=== PATIENT | male | born 1945 | race Caucasian/White ===

== ENCOUNTER 2022-01-29 18:59 | Emergency (ER) | payer OTHER ==
--- OUTSIDE RECORDS SUMMARY | 2022-01-29 19:01 | XMS REPORT | Continuity of Care Document ---
:1945 Author Organization [facility] t Address [address] [place] [address] Care Team Providers Name Role Phone Samy FARLEY Primary Care Physician Unavailable ABE Attending Clinician Unavailable Abe TOVAR Attending Clinician Payers Payer Name Policy Type Policy Number Effective Date Expiration Date S mans[place] [employer] MANAGED [id number] 2020 MEDICARE PPO-CRISTELA 00:00:00 Problems Condition Condition Condition Status Onset Resolution Last Treating Co mments Source Name Details Category Date Date Treatment Clinician Date Diabetes Diabetes Disease Active Unive rs mellitus mellitus 2-18 ity of type 2, type 2, 00:00: [place] diet-contr diet-contr 00 Me dical olled olled Branch REECE REECE Disease Active Univers (obstructi (obstructi 2-08 it y of ve sleep ve sleep 00:00: [place] apnea) apnea) 00 Medical Branch H/O H/O Disease Active Univers valvular valvular 1-24 ity of heart heart 00:00: [place] disease disease 00 Medical Branch Cataracts, Cataracts, Disease Active U nivers bilateral bilateral 1-24 ity of 00:00: [place] 00 Medical Branch Hyperlipid Hyperlipid Disease Active U nivers emia emia 1-19 ity of 00:00: [place] 00 Medical Branch Hypothyroi Hypothyroi Disease Active U nivers dism dism ity of [facility] GERD GERD Disease Active Univers (gastroeso (gastroeso it y of phageal phageal [place] reflux reflux Medical disease) disease) Branch Arthritis Arthritis Disease Active Uni vers ity of [facility] Neuropathi Neuropathi Disease Active U nivers c pain c pain ity of [facility] Allergies, Adverse Reactions, Alerts Allergy Allergy Status Severity Reaction(s) Onset Inactive Treating Comm ents Source Name Type Date Date Clinician CODEINE DRUG Active Anxiety Univers INGREDI 10-31 ity of 00:00: [place] 00 Medical Branch Codeine Propensi Active Anxiety Hyper Univer s ty to 10-31 ity of adverse 00:00: [place] reaction 00 Medical s Branch Social History Social Habit Start Date Stop Date Quantity Comments Source Exposure to Not sure [place] of SARS-CoV-2 [facility] (event) Branch Alcohol intake 2021-08-30 2021-08-30 Current University of 00:00:00 00:00:00 non-drinker of [facility] alcohol [place] (finding) Tobacco use and 2017-10-31 2017-10-31 Never used Universit y of exposure 00:00:00 00:00:00 [facility] Sex [birth year] Universit y of 00:00:00 00:00:00 [facility] Smoking Status Start Date Stop Date Source Current every day smoker 2017-10-31 00:00:00 Uni versity of [facility] Medications Ordered Filled Start Stop Current Ordering Indication Dosage Frequency Signature Comments Components Source Medication Medication Date Date Medication? Clinician (SIG) Name Name clindamycin 2020-10 Yes [id number] 150mg Take 1 Univers 150 mg 0-01 capsule by ity of capsule 00:00: mouth 4 [place] 00 ([facility]) Medical times [place] daily. clindamycin 2020-10 Yes [id number] 150mg Take 1 Univers 150 mg 0-01 capsule by ity of capsule 00:00: mouth 4 [place] ([facility]) Medical times [place] daily. Immunizations Ordered Filled Immunization Date Status Comments Sourc e Immunization Name Name SARS-COV-2 COVID-19 2020-12-09 Completed Unive rsity of MODERNA VACCINE 00:00:00 [facility] SARS-COV-2 COVID-19 2020-12-09 Completed Unive rsity of MODERNA VACCINE 00:00:00 [facility] SARS-COV-2 COVID-19 2020-11-13 Completed Unive rsity of MODERNA VACCINE 00:00:00 [facility] SARS-COV-2 COVID-19 2020-11-13 Completed Unive rsity of MODERNA VACCINE 00:00:00 [facility] Vital Signs Vital Name Observation Time Observation Value Comments Source Systolic blood 2021-08-30 19:46:00 160 mm[Hg] Univer sity of pressure [facility] Diastolic blood 2021-08-30 19:46:00 81 mm[Hg] Unive rsity of pressure [facility] Heart rate 2021-08-30 19:46:00 78 /min Universi ty [facility] Body temperature 2021-08-30 19:46:00 36.5 [facility] Respiratory rate 2021-08-30 19:46:00 18 /min [facility] Body height 2021-08-30 19:46:00 177.8 cm [facility] Body weight 2021-08-30 19:46:00 77.293 kg [facility] BMI 2021-08-30 19:46:00 24.45 kg/m2 [facility] Oxygen saturation in 2021-08-30 19:46:00 95 /min [facility] blood by [facility] Pulse oximetry Branch Procedures This patient has no known procedures. Encounters Start End Encounter Admission Attending Care Care Encounter Source Date/Time Date/Time Type Type Clinicians Facility Department ID 2021-08-30 2021-08-30 [facility] [id number] Univers 13:45:00 14:00:[address] [facility] 2021-08-30 2021-08-30 Office [facility] [id number] Univers 13:35:57 14:00:34 Visit Adalgisa ARREOLA [id number] i [facility] [id number] Jose AMADOR [id number] [place] [address] 2021-08-16 2021-08-16 [facility] [id number] Univers 08:00:00 10:03:[address] [facility] 2019-12-10 2019-12-11 Outpatient nullFlavo MNA [id number] Memoria 20:00:00 05:59:59 r Neurology 00 l Kaci Menon Results This patient has no known results.
[2022-01-29] MEDS ORDERED: LIDOCAINE 1% W/EPI 1:100,000 MDV 20 ML VIAL ONE (21:18)
--- NOTE | 2022-01-29 21:46 | RAD REPORT ---
EXAM DESCRIPTION: CT - [id number] - 01/29/2022 9:27 pm CLINICAL HISTORY: fall, right periorbital laceration COMPARISON: <Comparisons> TECHNIQUE: Axial 5 mm thick images of the head were obtained. Axial 2 mm thick images of the cervic al spine were obtained with sagittal and coronal reconstruction images generated and reviewed. All CT scans are performed using dose optimization technique as appropriate and may include automated exposure control or mA/KV adjustment according to patient size. FINDINGS: No intracranial hemorrhage, mass, edema or acute intracranial finding. No suspicion for ac marshall infarction. No extra-axial fluid collections. Mastoid air cells and paranasal sinuses are clear. No globe or orbit abnormality seen. Right periorbital small scalp hematoma is present with underlying bone intact. No significant atrophy or chronic ischemic change. Ventricles are normal. Cervical body height and alignment are normal. C5-6 disc space narrowing is present. Bridging ossific ation spans C6-7 likely restricted movement at this level. C5-6 endplate spurring causes bony foramin al encroachment. There is bony foraminal encroachment at C3-4. Posterior decompression changes are pr esent from C3 -C6. No fracture or acute bony abnormality. Central canal detail is inherently limited . No paraspinal mass or hematoma. IMPRESSION: Negative CT head examination for acute or significant finding. Patient has a small right periorbital scalp hematoma with underlying bone intact. Degenerative and postsurgical changes are present with no acute finding seen.
--- NOTE | 2022-01-29 23:15 | ER ---
Nurse's Notes [facility] Name: Christian Torres Age: 76 yrs Sex: Male : 1945 Arrival Date: 01/29/2022 Time: 19:01 Bed 23 Private MD: Diagnosis: Laceration without foreign body of unspecified part of head;Fall on same level from slipping, tripping and stumbling without subsequent striking against object Presentation: 01/29 19:05 Chief complaint: Patient states: got out of truck, fell and hit concrete. laceration to right eyebrow area, denies LOC, not on blood thinners, has been drinking. Care prior to arrival: None. Mechanism of Injury: Fall. Trauma event details: Injury occurred in the [facility]. 19:05 Method Of Arrival: Ambulatory iw 19:05 Acuity: ANDREAS 4 iw 19:07 Coronavirus screen: At this time, the client does not indicate any symptoms associated iw with coronavirus-19. Ebola Screen: Patient negative for fever greater than or equal to 101.5 degrees Fahrenheit, and additional compatible Ebola Virus Disease symptoms Patient denies exposure to infectious person. Patient denies travel to an Ebola-affected area in the 21 days before illness onset. No symptoms or risks identified at this time. Initial Sepsis Screen: Does the patient meet any 2 criteria? No. Patient's initial sepsis screen is negative. Does the patient have a suspected source of infection? No. Patient's initial sepsis screen is negative. Risk Assessment: Do you want to hurt yourself or someone else? Patient reports no desire to harm self or others. Onset of symptoms was January 29, 2022. Historical: - Allergies: 19:07 Codeine; iw 19:07 Dilaudid; iw - PMHx: 19:07 Arthritis; GERD; Hyperlipidemia; mitral valve prolapse; iw - Immunization history:: Adult Immunizations up to date. - Social history:: Smoking status: Patient reports the use of cigarette tobacco products, smokes one pack cigarettes per day. Patient uses alcohol, on a daily basis. Screenin:15 Abuse screen: Denies threats or abuse. Denies injuries from another. Nutritional ld1 screening: On. Nutritional screening: No deficits noted. Tuberculosis screening: No symptoms or risk factors identified. Fall Risk None identified. Assessment: 21:15 General: Appears in no apparent distress. comfortable, Behavior is calm, cooperative, ld1 appropriate for age. 21:15 Pain: Denies pain. Neuro: Level of Consciousness is awake, alert, obeys commands, ld1 Oriented to person, place, time, situation. Cardiovascular: Capillary refill < 3 seconds Patient's skin is warm and dry. Respiratory: Airway is patent Respiratory effort is even, unlabored, Respiratory pattern is regular, symmetrical. GI: Abdomen is flat, non-distended. : No signs and/or symptoms were reported regarding the genitourinary system. EENT: No signs and/or symptoms were reported regarding the EENT system. Derm: No signs and/or symptoms reported regarding the dermatologic system. Musculoskeletal: No signs and/or symptoms reported regarding the musculoskeletal system. Injury Description: Laceration sustained to outer aspect of right eyebrow. 23:10 Reassessment: Patient appears in no apparent distress at this time. No changes from ld1 previously documented assessment. Patient and/or family updated on plan of care and expected duration. Pain level reassessed. Vital Signs: 19:07 BP 120 / 66; Pulse 65; Resp 16; Temp 97.5; Pulse Ox 98% on R/A; iw 21:15 BP 122 / 58; Pulse 82; Resp 18; Pulse Ox 100% on R/A; ld1 23:10 BP 133 / 61; Pulse 81; Resp 18; Pulse Ox 100% on R/A; ld1 ED Course: 19:01 Patient arrived in ED. as 19:07 Triage completed. iw 19:08 Arm band placed on. iw 20:39 Manda Reyna RN is Primary Nurse. ld1 20:39 Eduardo Hodges PA is PHCP. cp 20:39 Will Graham MD is Attending Physician. cp 21:15 Patient has correct armband on for positive identification. Placed in gown. Bed in low ld1 position. Call light in reach. Side rails up X2. health care marketing specialist on. Pulse ox on. NIBP on. Door closed. Noise minimized. Warm blanket given. 21:15 No provider procedures requiring assistance completed. Patient did not have IV access ld1 during this emergency room visit. 21:28 CT Head C Spine In Process Unspecified. EDMS Administered Medications: 21:36 Drug: Lidocaine-Epinephrine -1%: (1:100,000) 5 ml {Note: administered by abebe wagner PA.} Volume: 20 ml; Route: Infiltration; Outcome: 23:14 Discharge ordered by . cp 23:19 Discharged to home ambulatory, with family. ld1 23:19 Condition: stable 23:19 Discharge instructions given to patient, family, Instructed on discharge instructions, follow up and referral plans. Demonstrated understanding of instructions, follow-up care. 23:19 Patient left the ED. ld1 Signatures: Dispatcher [employer] Eloisa Leon Irene, RN RN iw Page, Corey, PA PA cp Dibbern, Lauren, RN RN ld1 Corrections: (The following items were deleted from the chart) 19:08 19:05 Acuity: ANDREAS 3 iw jessica
--- NOTE | 2022-01-29 23:15 | EDPHYS ---
Physician Documentation [facility] Name: Christian Torres Age: 76 yrs Sex: Male : 1945 Arrival Date: 01/29/2022 Time: 19:01 Bed 23 Private MD: ED Physician Will Graham HPI: 01/29 21:10 This 76 yrs old Male presents to ER via Ambulatory with complaints of Fall Injury, cp Laceration. 21:10 Details of fall: The patient fell from an upright position, while walking. Onset: The cp symptoms/episode began/occurred just prior to arrival. Associated injuries: The patient sustained injury to the head, laceration, of the above right eye. Patient admits to consuming alcohol this evening. No reported LOC. Historical: - Allergies: 19:07 Codeine; iw 19:07 Dilaudid; iw - PMHx: 19:07 Arthritis; GERD; Hyperlipidemia; mitral valve prolapse; iw - Immunization history:: Adult Immunizations up to date. - Social history:: Smoking status: Patient reports the use of cigarette tobacco products, smokes one pack cigarettes per day. Patient uses alcohol, on a daily basis. ROS: 21:15 Constitutional: Negative for body aches, chills, fever, poor PO intake. cp 21:15 Eyes: Negative for visual disturbance. cp 21:15 Neck: Negative for stiffness. 21:15 Cardiovascular: Negative for chest pain. 21:15 Respiratory: Negative for cough, shortness of breath, wheezing. 21:15 Abdomen/GI: Negative for abdominal pain, vomiting, diarrhea, constipation. 21:15 Skin: Positive for laceration(s), of the above left eye. 21:15 Neuro: Negative for altered mental status, loss of consciousness, syncope, weakness. 21:15 All other systems are negative. Exam: 21:20 Constitutional: The patient appears in no acute distress, alert, awake, comfortable, cp non-diaphoretic, non-toxic, well developed, well nourished. 21:20 Head/face: Noted is a laceration(s), that is deep, that is jagged, of the above right cp eye, swelling, that is mild. 21:20 Eyes: Pupils: equal, round, and reactive to light and accomodation, Extraocular movements: intact throughout, Conjunctiva: normal, no exudate, no injection, Sclera: no appreciated abnormality, Lids and lashes: appear normal, bilaterally. 21:20 ENT: External ear(s): are unremarkable, Ear canal(s): are normal, TM's: dullness, bilaterally, Nose: is normal, Mouth: Lips: moist, Oral mucosa: pink and intact, moist, Posterior pharynx: Airway: no evidence of obstruction, patent. 21:20 Neck: C-spine: vertebral tenderness, is not appreciated, crepitus, is not appreciated, cp ROM/movement: is normal, is supple, without pain, no range of motions limitations, no nuchal rigidity. 21:20 Chest/axilla: Inspection: normal, Palpation: is normal, no crepitus, no tenderness. cp 21:20 Cardiovascular: Rate: normal, Rhythm: regular. 21:20 Respiratory: the patient does not display signs of respiratory distress, Respirations: normal, no use of accessory muscles, no retractions, labored breathing, is not present, Breath sounds: are clear throughout, no decreased breath sounds, no stridor, no wheezing. 21:20 Abdomen/GI: Inspection: abdomen appears normal, Palpation: abdomen is soft and non-tender, in all quadrants. 21:20 Musculoskeletal/extremity: Exam is negative for decreased range of motion, deformity, injury. 21:20 Neuro: Orientation: to person, place \T\ time. Mentation: is normal, Motor: moves all fours, strength is normal, Sensation: no obvious gross deficits. Vital Signs: 19:07 BP 120 / 66; Pulse 65; Resp 16; Temp 97.5; Pulse Ox 98% on R/A; iw 21:15 BP 122 / 58; Pulse 82; Resp 18; Pulse Ox 100% on R/A; ld1 23:10 BP 133 / 61; Pulse 81; Resp 18; Pulse Ox 100% on R/A; ld1 Laceration: 23:00 Wound Repair of 3cm ( 1.2in ) subcutaneous laceration to above right eye. Irregularly cp shaped.. Distal neuro/vascular/tendon intact. Anesthesia: Wound infiltrated with 4 mls of 1% lidocaine w/ Epi. Wound prep: Simple cleansing by me. Skin closed with 5 6-0 Prolene using interrupted sutures and sterile technique. Dressed with Bacitracin. Patient tolerated well. MDM: 20:45 Patient medically screened. cp 22:00 Differential diagnosis: closed head injury, contusion, fracture, laceration, multiple cp trauma. 23:14 Data reviewed: vital signs, nurses notes, radiologic studies, CT scan. cp 23:14 Counseling: I had a detailed discussion with the patient and/or guardian regarding: the cp historical points, exam findings, and any diagnostic results supporting the discharge/admit diagnosis, radiology results, the need for outpatient follow up, a family practitioner, to return to the emergency department if symptoms worsen or persist or if there are any questions or concerns that arise at home. Response to treatment: the patient's symptoms have markedly improved after treatment. Special discussion: Based on the patient's history, exam and DX evaluation, there is no indication for emergent intervention or inpatient [place]. It is understood by the patient/guardian that if the SXs persist or worsen they need to return immediately for re-evaluation. 01/29 20:57 Order name: CT Head C Spine; Complete Time: 21:58 cp 01/29 20:57 Order name: Dressing - Wound; Complete Time: 21:15 cp 01/29 20:57 Order name: Gloves, Sterile; Complete Time: 21:15 cp 01/29 20:57 Order name: Setup Suture Tray; Complete Time: 21:15 cp 01/29 22:39 Order name: Wound dressing; Complete Time: 23:02 cp Administered Medications: 21:36 Drug: Lidocaine-Epinephrine -1%: (1:100,000) 5 ml {Note: administered by abebe wagner.} Volume: 20 ml; Route: Infiltration; Disposition Summary: 01/29/22 23:14 Discharge Ordered Location: Home cp Problem: new cp Symptoms: have improved cp Condition: Stable cp Diagnosis - Laceration without foreign body of unspecified part of head cp - Fall on same level from slipping, tripping and stumbling without subsequent cp striking against object Followup: cp - With: Private Physician - When: 1 week - Reason: Staple/Suture removal Discharge Instructions: - Discharge Summary Sheet cp - Head Injury, Adult cp - Facial Laceration cp Forms: - Medication Reconciliation Form cp - Thank You Letter cp - Antibiotic Education cp - Prescription Opioid Use cp Signatures: Dispatcher [employer] Joanne Lopez RN RN iw Eduardo Hodges PA PA cp Manda Reyna, RN RN ld1
[2022-01-30 05:33] VITALS: TEMP 97.5
[2022-01-30 05:34] VITALS: O2SAT 100
[2022-01-30 05:36] VITALS: BP 133/61
== END 2022-01-29 23:19 | disposition home or self-care (01) ==
LOC: ER 18:59
PROC: 0JQ10ZZ Repair Face Subcutaneous Tissue and Fascia, Open Approach (ICD-10-PCS; principal; 2022-01-29)
DX: S01.81XA Laceration without foreign body of other part of head, initial encounter (principal); W01.0XXA Fall on same level from slipping, tripping and stumbling without subsequent striking against object, initial encounter; F17.210 Nicotine dependence, cigarettes, uncomplicated; E78.5 Hyperlipidemia, unspecified; Z88.5 Allergy status to narcotic agent
CPT/HCPCS: 70450; 72125; 99284

== ENCOUNTER → 2024-01-07 | Emergency (ER) | payer OTHER ==
[~2024-01-07] MED LIST: CEFTRIAXONE 1000 MG/VIAL ONE; HYDROCODONE/APAP 10/325 TAB ONE; MORPHINE 4 MG/ML SYR ONE; NA CHLORIDE 0.9% 1,000 ML ONE; ONDANSETRON 4 MG (ODT) TAB ONE; ONDANSETRON 4 MG/2 ML VIAL ONE
[2024-01-07 21:51] LABS: Absolute Lymphocytes (CBC) 0.7 K/uL (0.7-4.9); Absolute Monocytes 0.6 K/uL (0.1-1.3); Absolute Neutrophil 10.2 K/uL (1.8-8.0); Basophils % 0.3 % (0-1.3); Eosinophils % 0.2 % (0-4.4); Hematocrit 47.6 % (39.6-49.0); Hemoglobin 16.2 g/dL (13.6-17.9); Lymphocytes % 6.2 % (15.3-44.8); MCH 30.5 pg (27.0-35.0); MCHC 34.1 g/dL (32.0-36.0); MCV 89.5 fL (80-100); MPV 9.7 fL (7.6-11.3); Monocytes % 5.5 % (3.3-12.3); Neutrophils % 87.8 % (41.7-73.7); Nucleated Red Blood Cells % 0.1 % (0-0); Platelets 197 thou/uL (152-406); RBC Red Blood Cell Count 5.32 M/uL (4.33-5.43); Red Cell Distribution Width 14.1 % (12.1-15.2)
[2024-01-07 22:05] LABS: Albumin 3.4 g/dL (3.4-5.0); Albumin/Globulin Ratio 0.9 (1.1-1.8); Bilirubin Total 0.7 mg/dL (0.2-1.0); Globulin 3.8 g/dL (2.3-3.5); Protein, Total 7.2 g/dL (6.4-8.2)
[2024-01-08 00:35] LABS: Sqamous Epithelial <5 /HPF (None Seen); Urine Bacteria None Seen /HPF (<20); Urine Bilirubin NEGATIVE (Negative); Urine Blood Negative (Negative); Urine Clarity Clear (Clear); Urine Color Light-Yellow (Yellow); Urine Culture Reflex Order NOT NEEDED; Urine Glucose NEGATIVE (Negative); Urine Ketones TRACE (Negative); Urine Microscopic Reflex YN ORDER UMIC; Urine Mucus Slight /HPF (None Seen); Urine Nitrite NEGATIVE (Negative); Urine Protein TRACE (Negative); Urine RBC <5 /HPF (None Seen); Urine Urobilinogen Normal (Normal); Urine WBC <5 /HPF (<5); Urine pH 6.5 (5.0-7.0)
[2024-01-08 00:38] LABS: Specific Gravity > 1.030 (1.005-1.030)
--- NOTE | 2024-01-08 01:07 | EDPHYS ---
Physician Documentation [facility] Name: Christian Torres Age: 78 yrs Sex: Male : 1945 Arrival Date: 01/07/2024 Time: 20:40 Bed 7 Private MD: ED Physician Marty García HPI: 01/06 21:06 This 78 yrs old Male presents to ER via Ambulatory with complaints of Vomiting - left kb side to back pain. 21:06 Pt is a 78 year old male who presents with left back pain that radiates to left abd kb that began this morning. Reports mild fever this morning and vomiting. Denies diarrhea or urinary symptoms. Historical: - Allergies: 21:04 Codeine; vc1 21:04 Dilaudid; vc1 - PMHx: 21:04 Arthritis; GERD; Hyperlipidemia; mitral valve prolapse; vc1 - PSHx: 21:04 None; vc1 - Immunization history:: Client reports receiving the 2nd dose of the Covid vaccine, Pneumococcal vaccine is up to date. - Social history:: Smoking status: Smoking status: Patient reports the use of cigarette tobacco products, smokes one pack cigarettes per day. ROS: 21:05 Constitutional: As per HPI kb Exam: 21:05 Constitutional: This is a well developed, well nourished patient who is awake, alert, kb and in no acute distress. Head/Face: Normocephalic, atraumatic. ENT: Moist Mucous membranes Cardiovascular: Regular rate Respiratory: Respirations even and unlabored. No increased work of breathing. Talking in full sentences Abdomen/GI: Soft, non-tender. No distention Skin: Warm, dry with normal turgor. Normal color. MS/ Extremity: Pulses equal, no cyanosis. Neurovascular intact. Full, normal range of motion. Neuro: Awake and alert, GCS 15, oriented to person, place, time, and situation. Moves all extremities. Normal gait. 21:05 Back: pain, that is moderate, of the left low back, ROM is painful, Vital Signs: 21:09 BP 164 / 93; Pulse 65; Resp 14; Temp 98.1; Pulse Ox 98% ; Weight 73.94 kg; Height 5 ft. vc1 10 in. ; Pain 10/10; 21:59 BP 150 / 73; Pulse 71; Pulse Ox 97% on R/A; tm6 23:25 BP 141 / 62; Pulse 69; Resp 16; Pulse Ox 97% on R/A; jb4 23:38 BP 145 / 87; Pulse 76; Pulse Ox 97% on R/A; Pain 10/10; tm6 01/07 01:43 BP 149 / 72; Pulse 83; Resp 16; Pulse Ox 94% on R/A; jb4 01/06 21:09 Body Mass Index 23.39 (73.94 kg, 177.8 cm) vc1 01/06 21:09 Pain Scale: Adult vc1 23:38 Pain Scale: Adult tm6 MDM: 01/06 20:44 Patient medically screened. kb 21:06 Differential diagnosis: uti, kidney stone, pyelonephritis, diverticulitis. Data kb reviewed: vital signs, nurses notes. 01/07 00:32 Transition of care: After a detail discussion of the patient's case, care is kb transferred to Marty García MD. 00:45 Consideration of Admission/Observation Escalation of care including sp4 admission/observation considered. ED course: CLINICAL HISTORY: ABD PAIN. COMPARISON: CT abdomen/pelvis from February 28, 2017. TECHNIQUE: CT of the abdomen and pelvis was performed following intravenous administration of iodinated contrast. Oral contrast was not administered. Axial, coronal, and sagittal soft tissue window reconstructions were created and sent to PACS. This exam was performed according to our departmental dose-optimization program, which includes automated exposure control, adjustment of the mA and/or kV according to patient size and/or use of iterative reconstruction technique. FINDINGS: Thoracic: Mild interstitial thickening in the lung bases suggestive of chronic fibrosis. Hepatobiliary: Hepatomegaly, measuring 20.2 cm in length. No concerning hepatic lesion identified. The portal veins are patent. The gallbladder is unremarkable. No biliary ductal dilatation. Pancreas: Unremarkable. Spleen: Unremarkable. Gastrointestinal: No evidence of bowel obstruction or perienteric inflammation. The appendix is normal. Moderate sigmoid diverticulosis. Small stool burden. Adrenals: No abnormality identified in either adrenal gland. Renal: There is a large well marginated geographic region of hypoenhancement in the lateral aspect of the left kidney involving at least one third of the left renal parenchyma. Smaller striated regions of hypoenhancement in the rest of the left renal parenchyma. The main left renal artery and renal vein are patent. No concerning parenchymal abnormality in the right kidney. No hydronephrosis or urolithiasis. No drainable fluid collection is visualized. Bladder/Reproductive: Moderate circumferential wall thickening of the urinary bladder, most prominent anteriorly. Normal Vascular/Lymphatics: No lymphadenopathy identified by CT size criteria. Abdominal aorta is normal in caliber. Prominent mixed atherosclerosis. Musculoskeletal: No concerning osseous lesion identified. Tiny fat-containing bilateral inguinal hernias with no inflammatory changes. Fluid / peritoneum: No significant free fluid. No free intraperitoneal air identified. IMPRESSION 1. Large region of hypoenhancement in the left kidney. Smaller striated hypoenhancing regions in the rest of the left renal parenchyma. Differential includes acute infarct versus pyelonephritis. 2. The main left renal artery and vein are patent. 3. Moderate urinary bladder wall thickening in the setting of prominent prostatomegaly. This could be chronic or related to cystitis.. 01:01 ED course: CT has revealed unusual findings of large hypoenhancement in the left kidney sp4 indicative of either infarct or pyelonephritis. The main left renal artery and vein are patent. Also there is prostatomegaly. Patient was advised to stay in hospital for further investigation including renal artery ultrasound. But at this time he prefers to go home. Will refer patient to Dr. Ainsley marks with nephrology. . 01/06 21:08 Order name: CBC with Diff; Complete Time: 21:56 kb 01/06 21:08 Order name: CMP; Complete Time: 22:05 kb 01/06 21:08 Order name: Lipase; Complete Time: 22:05 kb 01/06 21:08 Order name: Urinalysis w/ reflexes; Complete Time: 00:40 kb 01/06 21:08 Order name: CT Abd/Pelvis - IV Contrast Only kb 01/06 21:08 Order name: IV Saline Lock; Complete Time: 21:34 kb 01/06 21:08 Order name: Labs collected and sent; Complete Time: 21:34 kb Administered Medications: 01/06 21:46 Drug: NS 0.9% IV 1000 ml IV at 1 bolus Per protocol; 1000 mL bolus Route: IV; Rate: 1 jb4 bolus; Site: right forearm; 21:47 Drug: Ondansetron IVP 4 mg IVP once; over 2 minutes Route: IVP; Site: right forearm; jb4 21:47 Drug: morphine IVP or IV 4 mg IVP once over 4 mins {Note: denies allergy to morphine.} jb4 Route: IVP; Infused Over: 4 mins; Site: right forearm; 23:33 Drug: morphine IVP or IV 4 mg IVP once over 4 mins Route: IVP; Infused Over: 4 mins; tm6 Site: right forearm; 01/07 00:24 Drug: Rocephin IV 1 grams IV at calculated rate once; Given slow IV push per pharmacy tm6 instructions Route: IV; Rate: calculated rate; Site: right forearm; 01:10 Drug: [place] PO 10 mg-325 mg 1 tabs PO once Route: PO; jb4 01:10 Drug: Ondansetron PO 4 mg PO once Route: PO; jb4 Disposition: 01/06 23:44 Co-signature as Attending Physician, Marty García MD I agree with the assessment sp4 and plan of care. I reviewed the patient's care provided by the Advanced Practice Provider and agree with the diagnosis and treatment plan. Disposition Summary: 01/08/24 01:06 Discharge Ordered Problem: new sp4 Symptoms: have improved sp4 Condition: Stable sp4 Diagnosis - Left flank pain, left renal infarct, prostatomegaly sp4 Followup: sp4 - With: Mele Schmitz, DO - When: 2 - 3 days - Reason: Recheck today's complaints Discharge Instructions: - Discharge Summary Sheet sp4 - Renal Colic, [id number] sp4 Forms: - Patient Portal Instructions sp4 Prescriptions: - Tramadol 50 mg Oral tablet - take 1 tablet ORAL route every 8 hours as needed; 20 tablet; Refills: 0, sp4 Product Selection Permitted - ondansetron 8 mg Oral Tablet,disintegrating - take 1 tablet ORAL route every 8 hours PRN nausea; 20 tablet; Refills: 0, sp4 Product Selection Permitted Signatures: Dispatcher [employer] Bianca Laurent, DELICIAC ZEV-David Smalls RN RN jb4 Bessie Jones RN RN vc1 Marty García MD MD sp4 Marychuy Johnson RN RN tm6
--- NOTE | 2024-01-08 01:07 | ER ---
Nurse's Notes [facility] Name: Christian Torres Age: 78 yrs Sex: Male : 1945 Arrival Date: 01/07/2024 Time: 20:40 Bed 7 Private MD: Diagnosis: Left flank pain, left renal infarct, prostatomegaly Presentation: 01/06 21:03 Chief complaint: Patient states: left side abdominal pain to left side lower back. N/V vc1 fever. Ebola Screen: Patient negative for fever greater than or equal to 101.5 degrees Fahrenheit, and additional compatible Ebola Virus Disease symptoms Patient denies exposure to infectious person. Patient denies travel to an Ebola-affected area in the 21 days before illness onset. No symptoms or risks identified at this time. Initial Sepsis Screen: Does the patient meet any 2 criteria? No. Patient's initial sepsis screen is negative. Does the patient have a suspected source of infection? No. Patient's initial sepsis screen is negative. Risk Assessment: Do you want to hurt yourself or someone else? Patient reports no desire to harm self or others. Onset of symptoms was January 07, 2024. Care prior to arrival: None. Activity prior to arrival: None. 21:03 Method Of Arrival: Ambulatory vc1 21:03 Acuity: ANDREAS 3 vc1 21:09 Coronavirus screen: Vaccine status: Patient reports receiving the 2nd dose of the covid vc1 vaccine. At this time, the client does not indicate any symptoms associated with coronavirus-19. Triage Assessment: 21:06 General: Appears in no apparent distress. uncomfortable, slender, Behavior is calm, vc1 cooperative, appropriate for age. Pain: Complains of pain in left lower quadrant Pain radiates to left low back Pain currently is 10 out of 10 on a pain scale. Quality of pain is described as burning, sharp, shooting, Pain began suddenly, Is continuous, Noted to be grimacing, Also complains of vomiting. EENT: No deficits noted. No signs and/or symptoms were reported regarding the EENT system. Neuro: Level of Consciousness is awake, alert, obeys commands, Oriented to person, place, time, situation, Appropriate for age. Cardiovascular: No deficits noted. Respiratory: Airway is patent Respiratory effort is even, unlabored, Respiratory pattern is regular, symmetrical. GI: Abd is soft Abdomen is tender to palpation in left lower quadrant Reports lower abdominal pain, nausea, vomiting, Patient currently denies diarrhea. : No deficits noted. No signs and/or symptoms were reported regarding the genitourinary system. Derm: No deficits noted. No signs and/or symptoms reported regarding the dermatologic system. Musculoskeletal: No deficits noted. No signs and/or symptoms reported regarding the musculoskeletal system. Historical: - Allergies: 21:04 Codeine; vc1 21:04 Dilaudid; vc1 - PMHx: 21:04 Arthritis; GERD; Hyperlipidemia; mitral valve prolapse; vc1 - PSHx: 21:04 None; vc1 - Immunization history:: Client reports receiving the 2nd dose of the Covid vaccine, Pneumococcal vaccine is up to date. - Social history:: Smoking status: Smoking status: Patient reports the use of cigarette tobacco products, smokes one pack cigarettes per day. Screenin:[facility] ED Fall Risk Assessment (Adult) History of falling in the last 3 months, tm6 including since admission No falls in past 3 months (0 pts) Confusion or Disorientation No (0 pts) Intoxicated or Sedated No (0 pts) Impaired Gait No (0 pts) Mobility Assist Device Used No (0 pt) Altered Elimination No (0 pt) Score/Fall Risk Level 0 - 2 = Low Risk Oriented to surroundings, Maintained a safe environment. Abuse screen: Denies threats or abuse. Denies injuries from another. Nutritional screening: No deficits noted. Tuberculosis screening: No symptoms or risk factors identified. Assessment: 21:08 General: PT states urinated right before triage. vc1 21:15 General: Appears in no apparent distress. uncomfortable, Behavior is calm, cooperative, jb4 appropriate for age. Pain: Complains of pain in abdomen Pain does not radiate. Pain currently is 10 out of 10 on a pain scale. Neuro: Level of Consciousness is awake, alert, obeys commands, Oriented to person, place, time, situation. Cardiovascular: Patient's skin is warm and dry. Respiratory: Airway is patent Respiratory effort is even, unlabored, Respiratory pattern is regular, symmetrical. GI: Abdomen is flat, non-distended, Reports lower abdominal pain, upper abdominal pain. : No signs and/or symptoms were reported regarding the genitourinary system. EENT: No signs and/or symptoms were reported regarding the EENT system. Derm: Skin is intact, Skin is pink, warm \T\ dry. Musculoskeletal: Circulation, motion, and sensation intact. Range of motion: intact in all extremities. 22:15 Reassessment: Patient appears in no apparent distress at this time. Patient and/or jb4 family updated on plan of care and expected duration. Pain level reassessed. Patient is alert, oriented x 3, equal unlabored respirations, skin warm/dry/pink. 23:25 Reassessment: Patient appears in no apparent distress at this time. Patient and/or jb4 family updated on plan of care and expected duration. Pain level reassessed. Patient is alert, oriented x 3, equal unlabored respirations, skin warm/dry/pink. 23:39 Reassessment: Patient and/or family updated on plan of care and expected duration. Pain tm6 level reassessed. Patient is alert, oriented x 3, equal unlabored respirations, skin warm/dry/pink. 01/07 01:43 Reassessment: Patient appears in no apparent distress at this time. Patient and/or jb4 family updated on plan of care and expected duration. Pain level reassessed. Patient is alert, oriented x 3, equal unlabored respirations, skin warm/dry/pink. Patient states feeling better. Vital Signs: 01/06 21:09 BP 164 / 93; Pulse 65; Resp 14; Temp 98.1; Pulse Ox 98% ; Weight 73.94 kg; Height 5 ft. vc1 10 in. ; Pain 10/10; 21:59 BP 150 / 73; Pulse 71; Pulse Ox 97% on R/A; tm6 23:25 BP 141 / 62; Pulse 69; Resp 16; Pulse Ox 97% on R/A; jb4 23:38 BP 145 / 87; Pulse 76; Pulse Ox 97% on R/A; Pain 10/10; tm6 01/07 01:43 BP 149 / 72; Pulse 83; Resp 16; Pulse Ox 94% on R/A; jb4 01/06 21:09 Body Mass Index 23.39 (73.94 kg, 177.8 cm) vc1 01/06 21:09 Pain Scale: Adult vc1 23:38 Pain Scale: Adult tm6 ED Course: 01/06 20:42 Patient arrived in ED. ra3 20:44 Bianca Alvarez FNP-C is [facility]. kb 20:44 Marty García MD is Attending Physician. kb 21:04 Triage completed. vc1 21:06 Arm band placed on right wrist. vc1 21:30 Initial lab(s) drawn, by me, sent to lab. Inserted saline lock: 18 gauge in right jb4 forearm, using aseptic technique. Blood collected. 21:32 Marychuy Johnson, RN is Primary Nurse. tm6 21:34 CBC with Diff Sent. jb4 21:34 CMP Sent. jb4 21:34 Lipase Sent. jb4 21:59 Patient has correct armband on for positive identification. Placed in gown. Bed in low tm6 position. Call light in reach. Side rails up X2. Provided Education on: plan of care. Client placed on continuous cardiac and pulse oximetry monitoring. NIBP monitoring applied. Pulse ox on. NIBP on. Door closed. Noise minimized. Warm blanket given. 22:58 CT Abd/Pelvis - IV Contrast Only In Process Unspecified. EDMS 01/07 00:14 Urinalysis w/ reflexes Sent. tm6 01:05 Mele Schmitz DO is Referral Physician. sp4 01:43 No provider procedures requiring assistance completed. IV discontinued, intact, jb4 bleeding controlled, No redness/swelling at site. Pressure dressing applied. Administered Medications: 01/06 21:46 Drug: NS 0.9% IV 1000 ml IV at 1 bolus Per protocol; 1000 mL bolus Route: IV; Rate: 1 jb4 bolus; Site: right forearm; 21:47 Drug: Ondansetron IVP 4 mg IVP once; over 2 minutes Route: IVP; Site: right forearm; jb4 21:47 Drug: morphine IVP or IV 4 mg IVP once over 4 mins {Note: denies allergy to morphine.} jb4 Route: IVP; Infused Over: 4 mins; Site: right forearm; 23:33 Drug: morphine IVP or IV 4 mg IVP once over 4 mins Route: IVP; Infused Over: 4 mins; tm6 Site: right forearm; 01/07 00:24 Drug: Rocephin IV 1 grams IV at calculated rate once; Given slow IV push per pharmacy tm6 instructions Route: IV; Rate: calculated rate; Site: right forearm; 01:10 Drug: [place] PO 10 mg-325 mg 1 tabs PO once Route: PO; jb4 01:10 Drug: Ondansetron PO 4 mg PO once Route: PO; jb4 Medication: 01/06 21:15 VIS not applicable for this client. jb4 Outcome: 01/07 01:06 Discharge ordered by . spTaz 01:43 Discharged to home ambulatory, with family, jb4 01:43 Condition: stable 01:43 Discharge instructions given to patient, Instructed on discharge instructions, follow up and referral plans. medication usage, Demonstrated understanding of instructions, follow-up care, medications, Prescriptions given X 2, 01:44 Patient left the ED. jb4 Signatures: Dispatcher [employer] EDMS Bianca Alvarez, MACHINE TACK PULLER-C MACHINE TACK PULLER-David Smalls, RN RN jb4 Bessie Jones RN RN vc1 Marty García MD MD sp4 Marychuy Johnson RN RN 6 Swapna Prince [facility]
[2024-01-08 01:57] VITALS: BP 149/72; TEMP 98.1; O2SAT 94
--- NOTE | 2024-01-08 11:46 | RAD REPORT ---
EXAM DESCRIPTION: CT abdomen/pelvis CLINICAL HISTORY: ABD PAIN. COMPARISON: CT abdomen/pelvis from February 28, 2017. TECHNIQUE: CT of the abdomen and pelvis was performed following intravenous administration of iodina carlos contrast. Oral contrast was not administered. Axial, coronal, and sagittal soft tissue window rec onstructions were created and sent to PACS. This exam was performed according to our departmental dose-optimization program, which includes autom ated exposure control, adjustment of the mA and/or kV according to patient size and/or use of iterati ve reconstruction technique. FINDINGS: Thoracic: Mild interstitial thickening in the lung bases suggestive of chronic fibrosis. Hepatobiliary: Hepatomegaly, measuring 20.2 cm in length. No concerning hepatic lesion identified. Th e portal veins are patent. The gallbladder is unremarkable. No biliary ductal dilatation. Pancreas: Unremarkable. Spleen: Unremarkable. Gastrointestinal: No evidence of bowel obstruction or perienteric inflammation. The appendix is alfa l. Moderate sigmoid diverticulosis. Small stool burden. Adrenals: No abnormality identified in either adrenal gland. Renal: There is a large well marginated geographic region of hypoenhancement in the lateral aspect of the left kidney involving at least one third of the left renal parenchyma. Smaller striated regions of hypoenhancement in the rest of the left renal parenchyma. The main left renal artery and renal vei n are patent. No concerning parenchymal abnormality in the right kidney. No hydronephrosis or urolith iasis. No drainable fluid collection is visualized. Bladder/Reproductive: Moderate circumferential wall thickening of the urinary bladder, most prominent anteriorly. Normal Vascular/Lymphatics: No lymphadenopathy identified by CT size criteria. Abdominal aorta is normal in caliber. Prominent mixed atherosclerosis. Musculoskeletal: No concerning osseous lesion identified. Tiny fat-containing bilateral inguinal berna ias with no inflammatory changes. Fluid / peritoneum: No significant free fluid. No free intraperitoneal air identified. IMPRESSION 1. Large region of hypoenhancement in the left kidney. Smaller striated hypoenhancing r egions in the rest of the left renal parenchyma. Differential includes acute infarct versus pyeloneph ritis. 2. The main left renal artery and vein are patent. 3. Moderate urinary bladder wall thickening in the setting of prominent prostatomegaly. This could be chronic or related to cystitis. Electronically signed by: Seema Cross MD 01/07/2024 11:55 PM CDT Due to temporary technical issues with the PACS/Fluency reporting system, reports are being signed by the in house radiologist without review as a courtesy to ensure prompt reporting. The interpreting r adiologist is fully responsible for the content of the report.
== END ==
LOC: ER 20:40
DX: N28.0 Ischemia and infarction of kidney (principal); N40.0 Benign prostatic hyperplasia without lower urinary tract symptoms; F17.210 Nicotine dependence, cigarettes, uncomplicated; Z88.5 Allergy status to narcotic agent
CPT/HCPCS: 85025; 36415; 83690; 80053; 74177; Q9967; J2405; J7030; 81001